=== PATIENT | female | born 1990 | race Two or more races ===

== ENCOUNTER 2024-10-28 05:19 | Inpatient (IN) | payer OTHER ==
[~2024-10-28] VITALS: Ht 157.5 cm; Wt 67.6 kg
[2024-10-28 05:50] LABS: BASOPHILS # (AUTO) 0.1 K/UL (0.0-0.2); BASOPHILS % (AUTO) 0.5 % (0.0-2.0); EOSINOPHILS # (AUTO) 0.3 K/uL (0.0-0.7); EOSINOPHILS % (AUTO) 2.1 % (0.0-7.0); HEMATOCRIT 40.4 % (31.2-41.9); HEMOGLOBIN 13.6 g/dL (10.9-14.3); LYMPHOCYTES # (AUTO) 1.2 K/uL (0.8-4.8); LYMPHOCYTES % (AUTO) 8.2 % (20.5-51.5); MEAN CORPUSCULAR HEMOGLOBIN 29.8 uug (24.7-32.8); MEAN CORPUSCULAR HGB CONC 34 g/dL (32.3-35.6); MEAN CORPUSCULAR VOLUME 88.8 fL (75.5-95.3); MONOCYTES # (AUTO) 0.9 K/uL (0.1-1.30); MONOCYTES % (AUTO) 5.9 % (0.0-11.0); NEUTROPHILS # (AUTO) 12.4 K/uL (1.8-8.9); NEUTROPHILS % (AUTO) 83.3 % (38.5-71.5); PLATELET COUNT (AUTO) 258 K/uL (179-408); RED BLOOD CELL COUNT(AUTO) 4.55 MIL/uL (3.63-4.92); RED CELL DISTRIBUTION WIDTH 13.3 % (12.3-17.7); WHITE BLOOD COUNT (AUTO) 14.9 K/uL (3.8-11.8)
[2024-10-28 06:06] LABS: DIFFERENTIAL COMMENT 1
[2024-10-28] MEDS ORDERED: METOCLOPRAMIDE HCL 10 MG/2 ML VIAL ONE (06:07)
[2024-10-28] MEDS ORDERED: MORPHINE SULFATE 2 MG/1 ML DISP.SYRIN ONE (06:08)
[2024-10-28 06:09] LABS: *BILIRUBIN,URIN 2+ (NEGATIVE); *BLOOD, URINE NEGATIVE (NEGATIVE); *CLARITY,URINE CLEAR (CLEAR); *COLOR,URINE YELLOW (YELLOW); *KETONES,URINE 4+ (NEGATIVE); *PROTEIN,URINE TRACE (NEGATIVE); LEUKOCYTE ESTERASE ,URINE NEGATIVE (NEGATIVE); NITRITE, URINE NEGATIVE (NEGATIVE); UGLUCOSE NEGATIVE (NEGATIVE)
[2024-10-28 06:10] LABS: *URINE HCG, QUAL NEGATIVE (NEGATIVE)
[2024-10-28] MEDS: METOCLOPRAMIDE HCL 10 MG/2 ML VIAL IV ONE (06:12)
[2024-10-28] MEDS: IV NORMAL SALINE 1000 ML BAG IV ONE (06:12)
[2024-10-28] MEDS: MORPHINE SULFATE 2 MG/1 ML DISP.SYRIN IV ONE (06:12)
[2024-10-28 06:15] LABS: CALCIUM 9.1 mg/dL (8.5-10.1); CARBON DIOXIDE 24 mmol/L (21-32); CHLORIDE 103 mmol/L (98-107); CREATININE 0.6 mg/dL (0.6-1.3); GLUCOSE 124 mg/dL (74-106); POTASSIUM 3.5 mmol/L (3.5-5.1); SODIUM SERUM 139 mmol/L (136-145); UREA NITROGEN, BLOOD 8 mg/dL (7-18)
[2024-10-28 06:16] LABS: BACTERIA,URINE NONE SEEN /HPF (NONE SEEN); RBC,URINE NONE SEEN /HPF (0-3); SQUAMOUS EPITHELIAL CELL,UR MANY /HPF (NONE SEEN); WBC,URINE NONE SEEN /HPF (0-3)
[2024-10-28 06:17] LABS: MUCUS,URINE FEW /LPF (0-FEW)
[2024-10-28 06:21] LABS: ALANINE AMINOTRANSFERASE 473 U/L (14-59); ALBUMIN 3.9 g/dL (3.4-5.0); ALKALINE PHOSPHATASE 262 U/L (50-136); ASPARTATE AMINOTRANSFERASE 177 U/L (15-37); BILIRUBIN,DIRECT 1.4 mg/dL (0.0-0.2); BILIRUBIN,TOTAL 1.8 mg/dL (0.2-1.0); LIPASE 43 U/L (16-77); TOTAL PROTEIN, SERUM 7.6 g/dL (6.4-8.2)
[2024-10-28 06:29] LABS: PREGNANCY TEST SERUM QUAN < 1 miul/L (0-6)
[2024-10-28] MEDS ORDERED: HYDROMORPHONE 1 MG/1 ML DISP.SYRIN ONE (06:45)
[2024-10-28] MEDS: HYDROMORPHONE 1 MG/1 ML DISP.SYRIN IV ONE (06:48)
[2024-10-28] MEDS ORDERED: SWABABLE VALVE TRANSFER SET EA MC ONE (06:52)
[2024-10-28] MEDS ORDERED: IOHEXOL 300MG/ML 100 ML INFUS..BTL ONE (06:52)
[2024-10-28] MEDS ORDERED: IV NORMAL SALINE 250 ML IV ONE (06:52)
[2024-10-28] MEDS ORDERED: MAGNESIUM HYDROXIDE 30 ML LIQUID UDC PO PRN (09:15)
[2024-10-28] MEDS ORDERED: MORPHINE SULFATE 4 MG/1 ML DISP.SYRIN IV PRN (09:15)
[2024-10-28] MEDS: PIPERACILLIN SODIUM/TAZOBACTAM 3.375 G in IV DEXTROSE 5% 50 ML IV ONE (09:15)
[2024-10-28] MEDS ORDERED: ONDANSETRON 4 MG/2 ML VIAL IV PRN ×2 (09:15→15:15)
[2024-10-28] MEDS: SCOPOLAMINE PATCH 1 MG/72 HRS PATCH TD ONE (10:15)
[2024-10-28 10:59] VITALS: BP 90/52; TEMP 98.1; O2SAT 98
[2024-10-28] MEDS ORDERED: PROPOFOL 200 MG/20 ML BOTTLE ONE (12:00)
[2024-10-28] MEDS: IV LACTATED RINGERS SOLUTION 1,000 ML IV SCH (12:01)
[2024-10-28] MEDS: PIPERACILLIN SODIUM/TAZOBACTAM 3.375 G in IV DEXTROSE 5% 50 ML IV SCH (12:01)
[2024-10-28] MEDS ORDERED: ROPIVACAINE HCL/PF 0.5% ( 5 MG/ML ) , 20 ML VIAL ONE (12:52)
[2024-10-28] MEDS ORDERED: MIDAZOLAM HCL 2 MG/2 ML VIAL ONE (12:52)
[2024-10-28] MEDS ORDERED: LIDOCAINE 2% (GLYDO= UROJET) 10 ML JELLY MM ONE (12:52)
[2024-10-28] MEDS ORDERED: FENTANYL CITRATE 100 MCG/2 ML AMPUL ONE (12:52)
[2024-10-28] MEDS ORDERED: FAMOTIDINE. 20 MG/2 ML VIAL IV ONE (12:53)
[2024-10-28] MEDS ORDERED: ROCURONIUM BROMIDE 50 MG/5 ML VIAL ONE (12:53)
[2024-10-28] MEDS ORDERED: BUPIVACAINE/EPI PF 0.25% 10 ML VIAL IJ ONE (13:16)
[2024-10-28] MEDS ORDERED: MEPERIDINE 25 MG/1 ML DISP.SYRIN ONE (13:26)
[2024-10-28] MEDS ORDERED: LABETALOL HCL 100 MG/20 ML VIAL ONE (13:37)
[2024-10-28] MEDS ORDERED: KETAMINE HCL 500 MG/5 ML VIAL ONE (14:30)
[2024-10-28] MEDS ORDERED: HYDROMORPHONE 1 MG/1 ML DISP.SYRIN IV PRN (15:15)
[2024-10-28] MEDS ORDERED: MEPERIDINE 25 MG/1 ML DISP.SYRIN IV PRN (15:15)
[2024-10-28] MEDS ORDERED: ALBUTEROL SULFATE 8 GM HFA.AER.AD ONE (15:31)
[2024-10-28 16:49] VITALS: BP 98/63; TEMP 99; O2SAT 100
[2024-10-28 17:19] VITALS: O2SAT 96
[2024-10-28] MEDS: HYDROCODONE/APAP 10-325 MG TABLET PO PRN (18:06)
[2024-10-28 19:25] VITALS: BP 98/67; TEMP 99.2; O2SAT 98
[2024-10-28] MEDS: MORPHINE SULFATE 4 MG/1 ML DISP.SYRIN IV PRN (20:34)
[2024-10-28] MEDS: PIPERACILLIN SODIUM/TAZOBACTAM 3.375 G in IV DEXTROSE 5% 100 ML IV SCH (22:22)
[2024-10-29 06:34] LABS: BASOPHILS % (AUTO) 0.2 % (0.0-2.0); EOSINOPHILS # (AUTO) 0.1 K/uL (0.0-0.7); HEMATOCRIT 33.5 % (31.2-41.9); HEMOGLOBIN 11.3 g/dL (10.9-14.3); LYMPHOCYTES # (AUTO) 1.3 K/uL (0.8-4.8); LYMPHOCYTES % (AUTO) 10.3 % (20.5-51.5); MEAN CORPUSCULAR HGB CONC 34 g/dL (32.3-35.6); MEAN CORPUSCULAR VOLUME 88.9 fL (75.5-95.3); MONOCYTES # (AUTO) 1.3 K/uL (0.1-1.30); MONOCYTES % (AUTO) 9.9 % (0.0-11.0); NEUTROPHILS # (AUTO) 10.2 K/uL (1.8-8.9); NEUTROPHILS % (AUTO) 78.6 % (38.5-71.5); PLATELET COUNT (AUTO) 237 K/uL (179-408); RED BLOOD CELL COUNT(AUTO) 3.77 MIL/uL (3.63-4.92); RED CELL DISTRIBUTION WIDTH 13.6 % (12.3-17.7)
[2024-10-29 06:44] LABS: DIFFERENTIAL COMMENT 1
[2024-10-29 06:55] LABS: CARBON DIOXIDE 25 mmol/L (21-32); CHLORIDE 104 mmol/L (98-107); CREATININE 0.5 mg/dL (0.6-1.3); GLUCOSE 115 mg/dL (74-106); MAGNESIUM 1.6 mg/dL (1.8-2.4); PHOSPHOROUS 3.2 mg/dL (2.5-4.9); POTASSIUM 3.2 mmol/L (3.5-5.1); SODIUM SERUM 138 mmol/L (136-145); UREA NITROGEN, BLOOD 4 mg/dL (7-18)
[2024-10-29] MEDS ORDERED: MORPHINE SULFATE 4 MG/1 ML DISP.SYRIN IV PRN (07:00)
[2024-10-29 07:23] LABS: ALBUMIN 2.7 g/dL (3.4-5.0); BILIRUBIN,TOTAL 7.2 mg/dL (0.2-1.0); TOTAL PROTEIN, SERUM 5.9 g/dL (6.4-8.2)
[2024-10-29] MEDS: POTASSIUM CHLORIDE 20 MEQ POWDER PACKET PO ONE (11:07)
[2024-10-29] MEDS: MORPHINE SULFATE 2 MG/1 ML DISP.SYRIN IV PRN (11:07)
[2024-10-29] MEDS: MAGNESIUM SULFATE/D5W 100 ML IV SCH (11:32)
[2024-10-29 12:01] VITALS: BP 114/71; TEMP 98.9; O2SAT 98
[2024-10-29 15:50] VITALS: BP 125/86; TEMP 98; O2SAT 98
[2024-10-29] MEDS: MORPHINE SULFATE 2 MG/1 ML DISP.SYRIN IV ONE (15:59)
[2024-10-29 20:00] VITALS: BP 122/74; TEMP 98.8; O2SAT 98
[2024-10-29] MEDS: ACETAMINOPHEN 325 MG TABLET PO PRN (21:28)
== END 2024-10-29 22:30 | disposition short-term general hospital (02) | DRG 263 ==
LOC: ER 05:24 → MEDSURG3 09:36
PROC: 0FT44ZZ Resection of Gallbladder, Percutaneous Endoscopic Approach (ICD-10-PCS; principal; 2024-10-28 13:00)
DX: K80.66 Calculus of gallbladder and bile duct with acute and chronic cholecystitis without obstruction (principal); R17 Unspecified jaundice; E87.6 Hypokalemia; R74.01 Elevation of levels of liver transaminase levels; R91.8 Other nonspecific abnormal finding of lung field
CPT/HCPCS: 36415; 83690; 83735; 84100; 84703; 85025; A4663; G0378; J0690; J1100; J1171; J1308; J1885; J2175; J2250; J2270; J2405; J2543; J2765; J2795; J3010; J3475; J3490; J3535; J7040; J7120; Q9967

== ENCOUNTER 2024-11-09 16:54 | Emergency (ER) | payer OTHER ==
[~2024-11-09] VITALS: Ht 154.9 cm; Wt 62.1 kg
[2024-11-09 17:56] VITALS: BP 112/77; O2SAT 100
== END 2024-11-09 17:57 | disposition home or self-care (01) ==
LOC: ER 16:59
DX: Z48.03 Encounter for change or removal of drains (principal); Z90.49 Acquired absence of other specified parts of digestive tract; Z87.19 Personal history of other diseases of the digestive system
CPT/HCPCS: A4606; A4663